=== PATIENT | female | born 1985 | race African-American/Black ===

== ENCOUNTER 2019-07-30 02:11 | Emergency (ER) | payer SELFPAY ==
[~2019-07-30] VITALS: Ht 157.5 cm; Wt 62.1 kg
[2019-07-30 02:15] VITALS: Ht 157.5 cm; Wt 62.1 kg
[2019-07-30 03:09] LABS: BASOPHIL % 0.4 % (0-2); PLATELET COUNT 355 x10^3mcL (130-400); RED CELL DISTRIBUTION WIDTH 14.1 % (11.5-14.5)
[2019-07-30 03:12] LABS: CALCIUM 8.9 mg/dL (8.5-10.1); CARBON DIOXIDE 23.8 mmol/L (21-32); CHLORIDE SERUM 103 mmol/L (98-107); CREATININE SERUM 0.9 mg/dL (0.6-1.0); GFR1 > 60 mL/min; GLUCOSE SERUM 91 mg/dL (74-106); SODIUM SERUM 137 mmol/L (136-145)
[2019-07-30 03:17] LABS: ALBUMIN 3.7 g/dL (3.4-5.0); ALKALINE PHOSPHATASE 68 U/L (46-116); ALT/SGPT 15 U/L (14-59); AST/SGOT 8 U/L (15-37); BILIRUBIN TOTAL 0.12 mg/dL (0.20-1.00); LIPASE 109 IU/L (73-393); TOTAL PROTEIN, SERUM 7.9 g/dL (6.4-8.2)
[2019-07-30 04:24] LABS: UA SPECIFIC GRAVITY 1.025 (1.005-1.035); microscopic required? YES; urine erythrocyte 1+ (NEGATIVE)
[2019-07-30 06:53] VITALS: BP 104/49
== END 2019-07-30 07:45 | disposition home or self-care (01) ==
LOC: ED 02:11
PROVIDERS: Emergency Medicine
DX: N83.201 Unspecified ovarian cyst, right side (principal); D25.9 Leiomyoma of uterus, unspecified
CPT/HCPCS: J1885; J2405; J7030